=== PATIENT | female | born 1980 | race Caucasian/White ===

== ENCOUNTER 2020-04-26 19:31 | Emergency (ER) | payer MEDICAID ==
[~2020-04-26] VITALS: Ht 167.6 cm; Wt 72.7 kg
[2020-04-26 20:27] LABS: URINE HCG NEGATIVE (NEG)
[2020-04-26 20:28] LABS: CLARITY,URINE CLOUDY (Clear); COLOR,URINE YELLOW (Yellow); GLUCOSE, URINE NEGATIVE (Neg); KETONES,URINE 40 mg/dl (Neg); LEUKOCYTE ESTERASE ,URINE TRACE (Neg); NITRITES, URINE POSITIVE (Neg); OCCULT BLOOD,URINE NEGATIVE (Neg); PH,URINE 5.5 (4.8-8.0); PROTEIN,URINE TRACE mg/dl (Neg)
[2020-04-26 20:31] LABS: UA COLLECTION TYPE CLN CATCH MIDSTREAM
[2020-04-26 20:33] LABS: BACTERIA,URINE 4+ /HPF (Neg); RBC,URINE NONE SEEN /HPF (0-2); SQUAMOUS EPITHELIAL CELL,UR FEW /LPF (FEW); WBC,URINE 20-30 /HPF (0-4)
[2020-04-26 20:43] LABS: URINE AMPHETAMINE SCREEN NEGATIVE (Neg); URINE BARBITUATE SCREEN NEGATIVE (Neg); URINE BENZODIAZEPINES SCREEN POSITIVE (Neg); URINE CANNABINOID SCREEN POSITIVE (Neg); URINE COCAINE SCREEN NEGATIVE (Neg); URINE METHADONE SCREEN NEGATIVE (Neg); URINE OPIATE SCREEN NEGATIVE (Neg); URINE PHENCYCLIDINE SCREEN NEGATIVE (Neg)
[2020-04-26 20:51] LABS: BASOPHILS % (AUTO) 0.1 % (0-1); EOSINOPHILS % (AUTO) 0.1 % (0-6); HEMATOCRIT 40.6 % (35.0-45.0); LYMPHOCYTES # (AUTO) 1.3 X10'3 (1.1-4.8); LYMPHOCYTES % (AUTO) 9.9 % (21-51); MEAN CORPUSCULAR HEMOGLOBIN 30.3 PG (27.0-31.0); MEAN CORPUSCULAR HGB CONC 34.4 g/dL (33.0-36.5); MEAN CORPUSCULAR VOLUME 88.1 FL (78-98); MEAN PLATELET VOLUME 7.6 FL (7.4-10.4); MONOCYTES # (AUTO) 0.8 X10'3 (0-0.9); MONOCYTES % (AUTO) 6.6 % (2-12); NEUTROPHILS # (AUTO) 10.5 X10'3 (1.8-7.7); NEUTROPHILS % (AUTO) 83.3 % (42-75); PLATELET COUNT 298 X10'3 (140-440); RED BLOOD COUNT 4.61 X10'6 (4.20-5.60); RED CELL DISTRIBUTION WIDTH 12.9 % (11.5-14.5); WHITE BLOOD COUNT 12.7 X10'3 (4.5-11.0)
[2020-04-26 21:06] LABS: ALANINE AMINOTRANSFERASE 19 U/L (12-78); ALBUMIN 4.3 G/DL (3.4-5.0); ALBUMIN/GLOBULIN RATIO 1.5 (1.1-1.5); ALKALINE PHOSPHATASE 40 IU/L (46-116); ANION GAP 15 (8-16); ASPARTATE AMINO TRANSFERASE 17 U/L (10-37); BILIRUBIN,TOTAL 0.7 MG/DL (0.1-1.0); BLOOD UREA NITROGEN 12 MG/DL (7-18); BUN/CREATININE RATIO 11.1 (6.6-38.0); CALCIUM 9.1 MG/DL (8.5-10.1); CHLORIDE 104 MMOL/L (99-107); CREATININE 1.08 MG/DL (0.40-0.90); GLUCOSE 91 MG/DL (70-104); POTASSIUM 3.1 MMOL/L (3.5-5.1); SODIUM 141 MMOL/L (135-145); TOTAL CARBON DIOXIDE 22.2 MMOL/L (24-32); TOTAL PROTEIN 7.1 G/DL (6.4-8.2); eGFR 56 ML/MIN
[2020-04-26 21:17] LABS: ETHANOL < 0.010 GM/DL (0.0-0.010)
[2020-04-26] MEDS: potassium Cl 20 mEq SR tablet PO STA ×2 (21:31→23:42)
--- NOTE | 2020-04-26 23:49 | NUR ---
PATIENT BECAME EXTREMELY AGGITATED WHILE ATTEMPTING TO COMPLETE MEDICATION RECONCILITATION. NO EXTERNAL HISTORY AVAILABLE.
--- NOTE | 2020-04-26 23:50 | NUR ---
PATIENT REFUSED TO TAKE POTASSIUM, SPIT THEM OUT ON THE FLOOR STATING "THESE TASTE LIKE SHIT"
--- NOTE | 2020-04-27 04:22 | NUR ---
PACKET FAXED TO [facility]
[2020-04-27] MEDS: sulfamethoxazole/trimethoprim DS (800/160mg) tablet PO SCH ×2 (09:04→20:07)
--- NOTE | 2020-04-27 09:11 | NUR ---
PT TALKED ON PHONE WITH HER MOM AFTER TALKING TO JHON GUILLEN. STATES TO ME SHE IS FEELING MUCH BETTER AND SHE HAS REASONS FOR GETTING HELP. STATES SHE IS READY TO GET BETTER AND SHE WILL BE BETTER FOR IT.
[2020-04-27] MEDS ORDERED: potassium Cl 20 mEq SR tablet PO STA (12:00)
--- NOTE | 2020-04-27 12:09 | NUR ---
[facility] CALLED FOR PT INFO. THEY ARE REQUESTING A REPEAT CMP.
--- NOTE | 2020-04-27 12:48 | NUR ---
PT HAD AN AGITATED OUTBURST AFTER HAVING HER BLOOD DRAWN YELLING, "FUCKING SHUT UP SO I CAN SLEEP!". CALMLY ADVISED PT THAT BEHAVIOR WOULDNT BE TOLERATED AND PT LAID BACK DOWN AND CLOSED HER EYES. VERY DIRECTABLE AT THIS TIME.
[2020-04-27 13:08] LABS: ALANINE AMINOTRANSFERASE 17 U/L (12-78); ALBUMIN/GLOBULIN RATIO 0.9 (1.1-1.5); ALKALINE PHOSPHATASE 40 IU/L (46-116); ANION GAP 14 (8-16); ASPARTATE AMINO TRANSFERASE 18 U/L (10-37); BILIRUBIN,TOTAL 0.4 MG/DL (0.1-1.0); BLOOD UREA NITROGEN 7 MG/DL (7-18); BUN/CREATININE RATIO 9.9 (6.6-38.0); CALCIUM 8.9 MG/DL (8.5-10.1); CHLORIDE 106 MMOL/L (99-107); CREATININE 0.71 MG/DL (0.40-0.90); GLUCOSE 104 MG/DL (70-104); POTASSIUM 3.3 MMOL/L (3.5-5.1); SODIUM 142 MMOL/L (135-145); TOTAL CARBON DIOXIDE 22.3 MMOL/L (24-32); TOTAL PROTEIN 6.5 G/DL (6.4-8.2); eGFR 90 ML/MIN
--- NOTE | 2020-04-27 13:24 | NUR ---
LUNCH TRAY GIVEN, PT SAT UP AND EATING NOW CALMLY. [facility]
--- NOTE | 2020-04-27 13:56 | NUR ---
Faxed CMP to [place] office per request.
--- NOTE | 2020-04-27 16:45 | NUR ---
Break RN note:patient asleep at this time.
--- NOTE | 2020-04-27 16:47 | NUR ---
YANG FROM [facility] CALLED FOR A NURSE TO NURSE ON THIS PATIENT. SHE STATES SHE WILL PRESENT TO HER PROVIDER AND CONTACT [facility].
--- NOTE | 2020-04-27 17:33 | NUR ---
[facility] [phone] CALLED AND NEEDS [facility] HOME MEDS. PT STATES SHE DOESNT KNOW EXCEPT FOR HER XANAX. CALLED PTS MOTHER EDGARDO WHO IS HER CAREGIVER. SHE STATES PT IS SEEN BY PSYCHIATRIST DR. CHAPPELL AT [facility] IN [place], [place]. AND GETS SUBOXONE FROM [facility] IN [place], AND RX FROM [facility] [place]. MD OFFICE IS CLOSED. WAITING FAX FROM PHARMACY.
--- NOTE | 2020-04-27 17:59 | NUR ---
MED REC RECIEVED AND FAXED TO [facility].
--- NOTE | 2020-04-27 19:45 | NUR ---
Patient was speaking/yelling on the phone to her mom about being in "the place she hates". Patient was asked by tech to speak softer so not to disturb the other patients. Pt then became more aggressive toward tech and started to act like she was going to strike out. Pt eventually calmed and returned to bed without further intervention from staff
--- NOTE | 2020-04-27 21:01 | NUR ---
Pt appears to be resting comfortably in bed. No s/s of distress noted
--- NOTE | 2020-04-27 22:49 | NUR ---
Pt appears to be resting comfortably in bed. No s/s of distress noted
--- NOTE | 2020-04-27 23:30 | NUR ---
Pt appears to be resting comfortably in bed. No s/s of distress noted
--- NOTE | 2020-04-28 00:32 | NUR ---
Pt appears to be resting comfortably in bed. No s/s of distress noted
--- NOTE | 2020-04-28 00:45 | NUR ---
Recieved pt sleeping on side. No distress noted, will continue to monitor.
--- NOTE | 2020-04-28 01:38 | NUR ---
Pt up to use restroom then returned to her bed to sleep without incident.
--- NOTE | 2020-04-28 02:32 | NUR ---
[facility] called, this designer writer spoke to SRAVAN Gamble to complete intake interview. The case will be presented to MD in AM and Sherry will call back to report whether they are taking the pt or not. Pt currently sleeping on left side, no distress noted, will continue to monitor.
--- NOTE | 2020-04-28 05:27 | NUR ---
Pt sleeping, appears comfortable. Will continue to monitor.
[2020-04-28 06:06] VITALS: BP 98/55
--- NOTE | 2020-04-28 06:45 | NUR ---
MEALNIE FROM [facility] CALLED. THEY HAVE ACCEPTED PT BUT HER MEDI MELISSA, IS IN [facility]. SO THEY WILL CALL FOR AUTHORIZATION BEFORE THEY TAKE THE PT.
[2020-04-28] MEDS: sulfamethoxazole/trimethoprim DS (800/160mg) tablet PO SCH (08:15)
--- NOTE | 2020-04-28 08:24 | NUR ---
ACCEPTED AT [facility]. DR. FRANKLIN FIELDS WILL BE PICKING PT UP AT 1415, AIR FORCE SENIOR OFFICER IS JAX
[2020-04-28] MEDS ORDERED: nicotine 21mg patch - 24 hr TD ONE (10:25)
--- NOTE | 2020-04-28 10:46 | NUR ---
pt resting with head at end of bed and on right side. rr of 15. no s/s of distress or pain. will continue to monitor.
== END 2020-04-28 14:28 ==
LOC: ER 19:33
DX: F31.9 Bipolar disorder, unspecified (principal); N39.0 Urinary tract infection, site not specified; E87.6 Hypokalemia; F12.90 Cannabis use, unspecified, uncomplicated; F19.90 Other psychoactive substance use, unspecified, uncomplicated; Z91.89 Other specified personal risk factors, not elsewhere classified; Z88.0 Allergy status to penicillin
CPT/HCPCS: 36415; 80053; 80305; 80320; 81001; 81025; 84443; 85025; 99285